=== PATIENT | male | born 1945 | race Caucasian/White ===

== ENCOUNTER → 2019-03-27 | Outpatient (REF) ==
[~2019-03-27] MED LIST: ALEV220C2 PO; BACT800T5 PO; CIPR500T89 PO; FIBE625T15 PO; FISH100049 PO; HYDR-3715 PO; LIPI1TAB2 PO; MULTCAP11 PO; PERC7.5T12 PO; PROT1TAB2 PO; SENN8.6T7 PO; VESI5TAB PO
== END ==
LOC: M LAB LCGH 17:22
PROVIDERS: ATTEND Surgery
DX: D12.6 Benign neoplasm of colon, unspecified (principal); K62.1 Rectal polyp